=== PATIENT | female | born 1950 | race Caucasian/White ===

== ENCOUNTER 2022-08-19 09:12 | Inpatient (IN) | payer OTHER ==
[~2022-08-19] VITALS: Ht 160 cm; Wt 76.7 kg
[2022-08-19] MEDS ORDERED: HYDROCHLOROTH12.5 MG PO (09:29)
[2022-08-19] MEDS ORDERED: LOSARTAN POTAS100 MG PO (09:29)
[2022-08-20] MEDS ORDERED: DUI500 PO (17:27)
[2022-08-20] MEDS ORDERED: OXYC1TAB9 PO (17:27)
== END 2022-08-20 21:55 | disposition home or self-care (01) | DRG 512 ==
LOC: ER 09:12 → SURH 14:29
PROVIDERS: ADMIT Internal Medicine; ATTEND Internal Medicine
PROC: 0PSH04Z Reposition Right Radius with Internal Fixation Device, Open Approach (ICD-10-PCS; principal; 2022-08-19)
DX: S52.531A Colles' fracture of right radius, initial encounter for closed fracture (principal); Z20.822 Contact with and (suspected) exposure to COVID-19